=== PATIENT | female | born 1995 | race Caucasian/White ===

== ENCOUNTER 2018-09-20 20:31 | Emergency (ER) | payer OTHER ==
[~2018-09-20] VITALS: Ht 157.5 cm; Wt 67.5 kg
[2018-09-21] MEDS ORDERED: HYDROCODONE/ACETAMINOPHEN 5/325MG TABLET PO ONE
[2018-09-21 00:17] LABS: BASOPHILS % 0.5 % (0.0-2.0); EOSINOPHILS % 1.7 % (0.0-5.0); HEMATOCRIT. 30.5 % (36.0-48.0); HEMOGLOBIN. 10.2 g/dL (12.0-16.0); LYMPHOCYTES % 36.9 % (20.0-50.0); MEAN CORPUSCULAR HEMOGLOBIN 26.9 pg (28.0-32.0); MEAN CORPUSCULAR VOLUME 80.9 fL (81.0-99.0); MEAN PLATELET VOLUME 8.2 fl (7.4-10.4); MONOCYTES % 7.9 % (2.0-8.0); PLATELET 277 x1000/uL (130-400); RED BLOOD CELL COUNT 3.77 mill/uL (4.2-5.4); RED CELL DISTRIBUTION WIDTH 13.4 % (11.6-14.6)
[2018-09-21 00:19] LABS: CHLORIDE 108 mEq/L (98-107)
[2018-09-21 00:50] LABS: CLARITY URINE CLEAR (CLEAR); COLOR URINE YELLOW (YELLOW); KETONES URINE NEGATIVE (NEGATIVE); LEUKOCYTE ESTERASE URINE NEGATIVE (NEGATIVE); NITRITE URINE NEGATIVE (NEGATIVE); OCCULT BLOOD URINE NEGATIVE (NEGATIVE); PROTEIN URINE NEGATIVE (NEGATIVE); SPECIFIC GRAVITY URINE 1.035 (1.005-1.030); UROBILINOGEN URINE 0.2 E.U./dL (0.2-1.0)
[2018-09-21 04:59] VITALS: BP 112/74
== END 2018-09-21 04:59 | disposition home or self-care (01) ==
LOC: ER 20:31
DX: D25.1 Intramural leiomyoma of uterus (principal); R10.2 Pelvic and perineal pain; N89.8 Other specified noninflammatory disorders of vagina; F12.10 Cannabis abuse, uncomplicated
CPT/HCPCS: 36415; 76830; 76856; 81025; 99284